=== PATIENT | female | born 1995 | race Two or more races ===

== ENCOUNTER 2018-08-07 21:15 | Emergency (ER) | payer SELFPAY ==
[~2018-08-07] VITALS: Ht 165.1 cm; Wt 88.9 kg
[2018-08-07 21:33] VITALS: BP 121/81
[2018-08-07] MEDS ORDERED: IBUPROFEN600 MG ORAL (23:19)
[2018-08-07 23:27] VITALS: BP 121/81
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
== END 2018-08-07 23:28 | disposition home or self-care (01) ==
LOC: EMR 22:00
DX: S20.211A Contusion of right front wall of thorax, initial encounter (principal); Y04.0XXA Assault by unarmed brawl or fight, initial encounter; Y92.89 Other specified places as the place of occurrence of the external cause; Z87.891 Personal history of nicotine dependence
CPT/HCPCS: 81025; 99283

== ENCOUNTER 2019-10-10 22:44 | Emergency (ER) | payer MEDICAID ==
[~2019-10-10] VITALS: Ht 162.6 cm; Wt 84.4 kg
[~2019-10-10 22:44] MED LIST: IBUPROFEN600 MG ORAL
[2019-10-10 22:52] VITALS: BP 131/87
[2019-10-10] MEDS ORDERED: Bactrim-DS 1 tab ORAL ONE (23:30)
[2019-10-10] MEDS ORDERED: MUPIROCIN22 GM TOPIC (23:39)
[2019-10-10] MEDS ORDERED: BACTRIM DS TAB1 EAC1 ORAL (23:39)
[2019-10-10] MEDS ORDERED: PSEUDOEPHEDRINE60 MG PO (23:39)
--- NOTE | 2019-10-10 23:40 | Emergency Room Report ---
History of Present Illness General Chief Complaint: Skin Rash/Abscess Source: Patient Present Illness HPI 23-year-old female with no past medical history. She presents with a rash to her lower extremities and buttock area. This been ongoing for last 4 to 5 days. She went to a clinic and was told that probably insect bite. She did shave her legs a week ago. No fever chills but she said there was some drainage when she tried a pop it. Now the one on her right leg is tender and itchy. There is some redness to it. She also complained of congestion and runny nose. This is been ongoing for 2 days. Hard time breathing because of congestion in her nose. Nonproductive cough. Allergies: Coded Allergies: No Known Allergies (Unverified , 08/07/18) Patient History Past Medical History: see triage record, old chart reviewed Past Surgical History: none Pertinent Family History: none Social History: Denies: smoking Last Menstrual Period: 08/06/19 Now: No Immunizations: other Reviewed Nursing Documentation: PMH: Agreed; PSxH: Agreed Nursing Documentation-PMH Past Medical History: No Stated History Review of Systems Eye: Denies: eye pain, blurred vision ENT: Reports: nose congestion; Denies: ear pain, throat swelling Respiratory: Denies: cough, shortness of breath Cardiovascular: Denies: chest pain, palpitations Gastrointestinal: Denies: abdominal pain, diarrhea, nausea, vomiting Musculoskeletal: Denies: back pain, joint pain Skin: Reports: rash Neurological: Reports: headache; Denies: numbness Endocrine: Denies: increased thirst, increased urine Hematologic/Lymphatic: Denies: easy bruising All Other Systems: negative except mentioned in HPI Physical Exam Vital Signs Date Time Temp Pulse Resp B/P (MAP) Pulse Ox O2 Delivery O2 Flow Rate FiO2 10/10/19 22:50 99.7 102 18 131/87 (102) 97 Room Air vitals normal Sp02 EP Interpretation: reviewed, normal General Appearance: well appearing, no apparent distress, alert Head: normocephalic, atraumatic Eyes: bilateral eye PERRL, bilateral eye EOMI ENT: hearing grossly normal, normal pharynx Neck: full range of motion, supple, no meningismus Respiratory: chest non-tender, lungs clear, normal breath sounds Cardiovascular #1: regular rate, rhythm, no murmur Gastrointestinal: normal bowel sounds, non tender, no mass, no organomegaly, no bruit, non-distended Musculoskeletal: back normal, gait/station normal, normal range of motion, other - scattered scabbed erythematous rash on buttock and lower extremities Psychiatric: mood/affect normal Medical Decision Making Diagnostic Impression: Primary Impression: URI (upper respiratory infection) Qualified Codes: J06.9 - Acute upper respiratory infection, unspecified Additional Impression: Cellulitis Qualified Codes: L03.119 - Cellulitis of unspecified part of limb ER Course This patient presents with cellulitis of her lower extremity. This is most likely MRSA. There is no abscess to be I&D. Will discharge home with antibiotics. Last Vital Signs Date Time Temp Pulse Resp B/P (MAP) Pulse Ox O2 Delivery O2 Flow Rate FiO2 10/10/19 22:50 99.7 102 18 131/87 (102) 97 Room Air Status: improved Disposition: HOME, SELF-CARE Condition: Stable Scripts Mupirocin* (MUPIROCIN*) 22 Gm Oint...g. 1 APPLIC TOPIC THREE TIMES A DAY, #22 GM Prov: Tod Barrios MD 10/10/19 Pseudoephedrine Hcl* (SUDAFED*) 60 Mg Tablet 60 MG PO Q6H, #20 TAB Prov: Tod Barrios MD 10/10/19 Trimethoprim/Sulfamethoxazole 160/800* (BACTRIM DS TABLET*) 1 Each Tablet 1 TAB ORAL Q12H, #14 TAB 0 Refills Prov: Tod Barrios MD 10/10/19 Additional Instructions: Follow-up with your doctor in 7 days. Keep wound clean. Return if symptoms worsen. Tod Barrios MD Oct 10, 2019 23:40
[2019-10-10 23:47] VITALS: BP 125/80
== END 2019-10-10 23:50 | disposition home or self-care (01) ==
LOC: EMR 23:50
DX: J06.9 Acute upper respiratory infection, unspecified (principal); L03.119 Cellulitis of unspecified part of limb
CPT/HCPCS: 99282

== ENCOUNTER 2020-01-18 18:44 | Emergency (ER) | payer MEDICAID ==
[~2020-01-18] VITALS: Ht 162.6 cm; Wt 81.6 kg
[~2020-01-18 18:44] MED LIST changes: +BACTRIM DS TAB1 EAC1 ORAL; +MUPIROCIN22 GM TOPIC; +PSEUDOEPHEDRINE60 MG PO
[2020-01-18 19:45] VITALS: BP 133/68
--- NOTE | 2020-01-18 19:45 | NUR ---
ED Nurse Note: pt presents to ED c/o epigastric px x 1.5 weeks. pt states that the pain sometimes radiates to her back, she rates the px a 9/10 that is intermittent but when it's there is "sharp." pt denies any N/V/D or difficulty breathing at this time.
--- NOTE | 2020-01-18 20:34 | Emergency Room Report ---
History of Present Illness General Chief Complaint: General Complaint Source: Patient (Mary Carmen Ortega) Present Illness HPI 24-year-old female with history of tobacco smoke, daily use of alcohol, and eating spicy food on daily basis here complaining of 2 weeks of epigastric pain radiating to her chest and shortness of breath. Reports that the pain is worse at night when she lays down however feels better when sits up and leans forward. Complains of acid reflux however denies nausea vomiting at this time. Denies fever and chills, diarrhea constipation, recent travel. Denies chest pain radiation, pleuritic chest pain, headache and dizziness. Has not taken medication for symptom relief. Patient reports that she also smokes hookah and occasional tobacco smoke. Denies other drug use. Reports that she drinks wine every night. Denies at this time however would like to be tested. (Mary Carmen Ortega) Allergies: Coded Allergies: No Known Allergies (Unverified , 08/07/18) Patient History Past Medical History: see triage record Past Surgical History: unable to obtain Pertinent Family History: none Social History: Reports: smoking, alcohol use Last Menstrual Period: 12/31/19 Now: No Immunizations: UTD Reviewed Nursing Documentation: PMH: Agreed; PSxH: Agreed (Mary Carmen Ortega) Nursing Documentation-PMH Past Medical History: No Stated History (Mary Carmen Ortega) Review of Systems All Other Systems: negative except mentioned in HPI (Mary Carmen Ortega) Physical Exam Vital Signs Date Time Temp Pulse Resp B/P (MAP) Pulse Ox O2 Delivery O2 Flow Rate FiO2 01/18/20 18:52 98.4 94 18 133/68 (89) 98 Room Air Sp02 EP Interpretation: reviewed, normal General Appearance: no apparent distress, alert, GCS 15, non-toxic Head: normocephalic, atraumatic Eyes: bilateral eye normal inspection, bilateral eye PERRL ENT: hearing grossly normal, normal pharynx, no angioedema, normal voice Neck: full range of motion, supple, supple/symm/no masses Respiratory: chest non-tender, lungs clear, normal breath sounds, no rhonchi, no respiratory distress, no retraction, no wheezing, speaking full sentences Cardiovascular #1: regular rate, rhythm, no edema, no murmur Cardiovascular #2: 2+ carotid (R), 2+ carotid (L), 2+ radial (R), 2+ radial (L) Gastrointestinal: normal bowel sounds, non tender, soft, no mass, no organomegaly, no peritonitis, no bruit, non-distended, no guarding, no hernia, no pulsatile mass, no rebound Genitourinary: normal inspection, no CVA tenderness Musculoskeletal: back normal, no calf tenderness, pelvis stable Neurologic: alert, oriented, cerebellar normal Psychiatric: judgement/insight normal, memory normal, mood/affect normal, no suicidal/homicidal ideation Skin: no rash, palpation normal, normal color Lymphatic: normal inspection (Mary Carmen Ortega) Medical Decision Making PA Attestation All diagnoses and treatment plans were reviewed and discussed with my supervising physician Dr. Mayen (Mary Carmen Ortega) Diagnostic Impression: Primary Impression: Gastritis Additional Impression: Nonspecific chest pain ER Course 24-year-old female with history of tobacco smoke, daily use of alcohol, and eating spicy food on daily basis here complaining of 2 weeks of epigastric pain radiating to her chest and shortness of breath. Reports that the pain is worse at night when she lays down however feels better when sits up and leans forward. Complains of acid reflux however denies nausea vomiting at this time. Denies fever and chills, diarrhea constipation, recent travel. Denies chest pain radiation, pleuritic chest pain, headache and dizziness. Has not taken medication for symptom relief. Patient reports that she also smokes hookah and occasional tobacco smoke. Denies other drug use. Reports that she drinks wine every night. Denies at this time however would like to be tested. Ddx considered but are not limited to: ND, Angina, COPD, GERD, Vital signs: are WNL, pt. is afebrile H&PE are most consistent with gastritis with possibility of gastric ulcer as patient reports that the pain is worsened after eating, nonspecific chest pain ORDERS: EKG, Chest XR, urine test, tox screen, omeprazole, Zofran, dicyclomine, Tylenol ED INTERVENTIONS: None required at this time. DISCHARGE: At this time pt. is stable for d/c to home. Will provide printed patient care instructions, and any necessary prescriptions. Care plan and follow up instructions have been discussed with the patient prior to discharge. Patient to follow-up with primary care provider, also to be referred to [facility] planning manager for possible endoscopy as patient may have gastric ulcer due to feeling pain after eating, referral to director export. Patient understand that she needs to cut back on spicy food, alcohol, tobacco smoke. If worsening symptoms return to the emergency room at this time no further blood work or imaging needed patient, I do not suspect any cardiac issues causing this this is been ongoing more so in the past 2 weeks however patient had the symptoms for the past several months. (Mary Carmen Ortega) EKG Diagnostic Results Rate: normal Rhythm: NSR ST Segments: no acute changes Other Impression No acute ST changes (Mary Carmen Ortega) Chest X-Ray Diagnostic Results Chest X-Ray Diagnostic Results : Chest X-Ray Ordered: Yes # of Views/Limited/Complete: 1 View Indication: Chest Pain EP Interpretation: Yes PA Xray: Interpretation reviewed, by supervising MD, and agrees with findings. Interpretation: no consolidation, no effusion, no pneumothorax Impression: No acute disease Electronically Signed by: Mary Carmen Franco PA-C (Mary Carmen Ortega) Chest X-Ray Diagnostic Results : Electronically Signed by: Josette Freeman documentation of Xray reviewed by me and is accurate, Leopoldo Mayen MD (Leopoldo Mayen MD) Last Vital Signs Date Time Temp Pulse Resp B/P (MAP) Pulse Ox O2 Delivery O2 Flow Rate FiO2 01/18/20 18:52 98.4 94 18 133/68 (89) 98 Room Air (Mary Carmen Ortega) Disposition: HOME, SELF-CARE Condition: Stable Scripts Dicyclomine Hcl* (DICYCLOMINE HCL*) 10 Mg Capsule 10 MG ORAL QID, #20 CAP Prov: Mary Carmen Ortega 01/18/20 Ondansetron (Zofran) 4 Mg Tablet 4 MG ORAL Q6H PRN for Nausea & Vomiting, #14 TAB Prov: Mary Carmen Ortega 01/18/20 Omeprazole (OMEPRAZOLE) 20 Mg Tablet.dr 20 MG ORAL DAILY, #30 TAB Prov: Mary Carmen Ortega 01/18/20 Patient Instructions: Gastritis, Adult, [id number], Nonspecific Chest Pain, [id number] Additional Instructions: Take medication as directed, follow-up with your primary care provider, increase oral hydration, avoid eating spicy acidic food, avoid smoking tobacco and alcohol intake. Also follow-up with your primary doctor for referral to [facility] planning manager and possible endoscopy. Also have your primary doctor to further evaluate if chest pain continues. Possible director export referral. If worsening symptoms return to emergency Mary Carmen Ortega Jan 18, 2020 20:34 Leopoldo Mayen MD Jan 20, 2020 05:32
[2020-01-18] MEDS ORDERED: OMEPRAZOLE20 M3 ORAL (20:35)
[2020-01-18] MEDS ORDERED: ZOFRAN4 M1 ORAL (20:35)
[2020-01-18] MEDS ORDERED: DICYCLOMINE HCL10 MG ORAL (20:35)
--- NOTE | 2020-01-18 20:35 | Diagnostic Imaging Report ---
History: SOB Exam: XR CXR 1 VIEW Comparison: 08/07/2018 FINDINGS: The lungs are clear. The cardiac and mediastinal contours are within limits. Mild rightward curvature, scoliosis again noted. IMPRESSION: No evidence of acute disease.
[2020-01-18 20:40] VITALS: BP 133/68
--- NOTE | 2020-01-18 20:40 | NUR ---
ED Nurse Note: Pt cleared by health care Provider for discharge. DC instructions/prescription was given and explained to pt and verbalized understanding of teachings. All medical devices such as ID band removed. Pt is AAO x4, ambulatory and left with all personal belongings.
== END 2020-01-18 20:45 | disposition home or self-care (01) ==
LOC: EMR 20:42
DX: K29.70 Gastritis, unspecified, without bleeding (principal); R07.9 Chest pain, unspecified; F17.200 Nicotine dependence, unspecified, uncomplicated
CPT/HCPCS: 71045; 80307; 81025; 93005; Z7502; 99284

== ENCOUNTER 2020-10-08 21:01 | Emergency (ER) | payer MEDICAID ==
[~2020-10-08] VITALS: Ht 162.6 cm; Wt 77.6 kg
[~2020-10-08 21:01] MED LIST changes: +DICYCLOMINE HCL10 MG ORAL; +OMEPRAZOLE20 M3 ORAL; +ZOFRAN4 M1 ORAL
--- NOTE | 2020-10-08 21:10 | NUR ---
ED Nurse Note: Patient walked in from home c/o vaginal bleeding accompanied by headache the started today. Patient aao x 4 and ambulatory with steady gait. Patient describes bright red bleeding "like a nosebleed, a little more than spotting". Patient reports she is 5 weeks and 6 days . Patient reports 3 pregnancies including current , 1 voluntary . 3, Para 1. Patient changed into gown, pt in stable condition.
[2020-10-08 21:29] LABS: APPEARANCE,URINE CLEAR; BILIRUBIN, URINE NEGATIVE (NEGATIVE); COLOR,URINE PALE YELLOW; GLUCOSE, URINE (UA) NEGATIVE (NEGATIVE); KETONES,URINE NEGATIVE (NEGATIVE); LEUKOCYTE ESTERASE ,URINE 2+ (NEGATIVE); NITRITE,URINE NEGATIVE (NEGATIVE); PH,URINE 7 (4.5-8.0); PROTEIN,URINE NEGATIVE (NEGATIVE); UROBILINOGEN,URINE NORMAL MG/DL (0.0-1.0)
[2020-10-08 21:56] LABS: BASOPHILS % (AUTO) 0.8 % (0.0-2.0); EOSINOPHILS % (AUTO) 0.6 % (0.0-3.0); HEMATOCRIT 42.9 % (37.0-47.0); HEMOGLOBIN 14.8 G/DL (12.0-16.0); LYMPHOCYTES % (AUTO) 27.7 % (20.0-45.0); MEAN CORPUSCULAR VOLUME 92 FL (80-99); MONOCYTES % (AUTO) 5.5 % (1.0-10.0); NEUTROPHILS % (AUTO) 65.5 % (45.0-75.0); PLATELET COUNT 236 K/UL (150-450); RED BLOOD COUNT 4.68 M/UL (4.20-5.40); RED CELL DISTRIBUTION WIDTH 10.4 % (11.6-14.8); WHITE BLOOD COUNT 8.3 K/UL (4.8-10.8)
[2020-10-08 22:03] LABS: ANION GAP 8 mmol/L (5-15); BLOOD UREA NITROGEN 10 mg/dL (7-18); CALCIUM 8.7 MG/DL (8.5-10.1); CARBON DIOXIDE 27 MMOL/L (21-32); CHLORIDE 102 MMOL/L (98-107); CREATININE 0.8 MG/DL (0.55-1.30); POTASSIUM 3.7 MMOL/L (3.5-5.1); SODIUM 137 MMOL/L (136-145)
[2020-10-08 22:04] LABS: INR 0.9 (0.9-1.1)
[2020-10-08 22:08] LABS: ALANINE AMINOTRANSFERASE 20 U/L (12-78); ALBUMIN 3.6 G/DL (3.4-5.0); ALKALINE PHOSPHATASE 61 U/L (46-116); ASPARTATE AMINO TRANSFERASE 13 U/L (15-37); BILIRUBIN,TOTAL 0.2 MG/DL (0.2-1.0)
--- NOTE | 2020-10-08 22:18 | NUR ---
ED Nurse Note: Ultrasound at bedside
--- NOTE | 2020-10-08 22:22 | Emergency Room Report ---
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 Patient History Past Medical History: see triage record : 3 Para: 1 Reviewed Nursing Documentation: PMH: Agreed; PSxH: Agreed Nursing Documentation-PMH Past Medical History: No Stated History Review of Systems All Other Systems: negative except mentioned in HPI Physical Exam Vital Signs Date Time Temp Pulse Resp B/P (MAP) Pulse Ox O2 Delivery O2 Flow Rate FiO2 10/08/20 21:04 92 19 133/87 (102) 100 Room Air Sp02 EP Interpretation: reviewed, normal General Appearance: well appearing, no apparent distress, alert Head: normocephalic, atraumatic Eyes: bilateral eye PERRL, bilateral eye EOMI ENT: uvula midline, moist mucus membranes Neck: supple, thyroid normal, supple/symm/no masses Respiratory: lungs clear, no respiratory distress, no retraction, no accessory muscle use Cardiovascular #1: normal peripheral pulses, regular rate, rhythm, no edema, no gallop, no murmur Gastrointestinal: non tender, soft, no guarding, no rebound Musculoskeletal: normal inspection Neurologic: alert, oriented x3 Psychiatric: mood/affect normal Skin: no rash, warm/dry Medical Decision Making Diagnostic Impression: Primary Impression: Threatened Laboratory Tests Test 10/08/20 21:10 10/08/20 21:18 White Blood Count 8.3 K/UL (4.8-10.8) Red Blood Count 4.68 M/UL (4.20-5.40) Hemoglobin 14.8 G/DL (12.0-16.0) Hematocrit 42.9 % (37.0-47.0) Mean Corpuscular Volume 92 FL (80-99) Mean Corpuscular Hemoglobin 31.7 PG (27.0-31.0) H Mean Corpuscular Hemoglobin Concent 34.6 G/DL (32.0-36.0) Red Cell Distribution Width 10.4 % (11.6-14.8) L Platelet Count 236 K/UL (150-450) Mean Platelet Volume 9.2 FL (6.5-10.1) Neutrophils (%) (Auto) 65.5 % (45.0-75.0) Lymphocytes (%) (Auto) 27.7 % (20.0-45.0) Monocytes (%) (Auto) 5.5 % (1.0-10.0) Eosinophils (%) (Auto) 0.6 % (0.0-3.0) Basophils (%) (Auto) 0.8 % (0.0-2.0) Prothrombin Time 10.1 SEC (9.30-11.50) Prothrombin Time INR 0.9 (0.9-1.1) Activated Partial Thromboplast Time 25 SEC (23-33) Sodium Level 137 MMOL/L (136-145) Potassium Level 3.7 MMOL/L (3.5-5.1) Chloride Level 102 MMOL/L (98-107) Carbon Dioxide Level 27 MMOL/L (21-32) Anion Gap 8 mmol/L (5-15) Blood Urea Nitrogen 10 mg/dL (7-18) Creatinine 0.8 MG/DL (0.55-1.30) Estimated Glomerular Filtration Rate > 60 mL/min (>60) Glucose Level 91 MG/DL (74-106) Calcium Level 8.7 MG/DL (8.5-10.1) Total Bilirubin 0.2 MG/DL (0.2-1.0) Aspartate Amino Transferase (AST) 13 U/L (15-37) L Alanine Aminotransferase (ALT) 20 U/L (12-78) Alkaline Phosphatase 61 U/L (46-116) Total Protein 7.2 G/DL (6.4-8.2) Albumin 3.6 G/DL (3.4-5.0) Globulin 3.6 g/dL Albumin/Globulin Ratio 1.0 (1.0-2.7) Lipase 143 U/L (73-393) Human Chorionic Gonadotropin, Quant Pending Urine Color Pale yellow Urine Appearance Clear Urine pH 7 (4.5-8.0) Urine Specific [place] 1.010 (1.005-1.035) Urine Protein Negative (NEGATIVE) Urine Glucose (UA) Negative (NEGATIVE) Urine Ketones Negative (NEGATIVE) Urine Blood Negative (NEGATIVE) Urine Nitrite Negative (NEGATIVE) Urine Bilirubin Negative (NEGATIVE) Urine Urobilinogen Normal MG/DL (0.0-1.0) Urine Leukocyte Esterase 2+ (NEGATIVE) H Urine RBC 0-2 /HPF (0 - 2) Urine WBC 5-10 /HPF (0 - 2) H Urine Squamous Epithelial Cells Few /LPF (NONE/OCC) Urine Bacteria Occasional /HPF (NONE) Urine Trichomonas Occasional /HPF (NONE) Last Vital Signs Date Time Temp Pulse Resp B/P (MAP) Pulse Ox O2 Delivery O2 Flow Rate FiO2 10/08/20 21:04 92 19 133/87 (102) 100 Room Air Disposition: HOME, SELF-CARE Condition: Stable Referrals: NOT CHOSEN IPA/,REFERRING (PCP) [facility] Women's Health Patient Instructions: First Trimester of , [id number], Threatened Miscarriage, [id number] Additional Instructions: The patient was provided with discharge instructions, notified to follow-up with a primary care doctor and or specialist in the next 24-48 hours, and to return to the ED if they have worsening of their symptoms. Please note that this report is being documented using Xelerated technology. This can lead to erroneous entry secondary to incorrect interpretation by the dictating instrument. Keith Solares MD Oct 08, 2020 22:22
[2020-10-08 22:56] VITALS: BP 128/79
--- NOTE | 2020-10-08 22:56 | NUR ---
ER DISCHARGE NOTE: Patient is cleared to be discharged per ERMD, pt is aox4, on room air, with stable vital signs. pt was given dc instructions, pt was able to verbalize understanding, pt id band and iv site removed intact without complications. pt is able to ambulate with steady gait. pt took all belongings. pt stable upon discharge.
--- NOTE | 2020-10-08 23:55 | Diagnostic Imaging Report ---
EXAM: US First Trimester , Transabdominal and Transvaginal CLINICAL HISTORY: ABD PAIN TECHNIQUE: Real-time transabdominal and transvaginal obstetrical ultrasound of the maternal pelvis and a first trimester with image documentation. Transvaginal imaging was used for better evaluation of the fetus and adnexa. COMPARISON: No relevant prior studies available. FINDINGS: Gestation: Single live IUP. heart rate of 115 bpm. Mean sac diameter of 1.74 cm. [place]-rump length of 0.55 cm. Average ultrasound age of 6 weeks and 3 days which is concordant with dates. Placenta/amniotic fluid: Small subchorionic hemorrhage measuring 0.5 x 0.4 x 0.3 cm. Uterus/cervix: A left-sided intramural myoma is seen measuring 3.1 x 2. 6 x 2.7 cm. Ovaries: Left ovarian 2.4 cm cyst which may represent a corpus luteal cyst. Free fluid: No free fluid. IMPRESSION: 1. Single live IUP of 6 weeks and 3 days. Size concordant with dates (LMP=08/28/20). 2. Small subchorionic hemorrhage measuring 0.5 x 0.4 x 0.3 cm. 3. 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 4. Left ovarian 2.4 cm cyst which may represent a corpus luteal cyst.
== END 2020-10-08 22:56 | disposition home or self-care (01) ==
LOC: EMR 21:33
DX: O20.0 Threatened abortion (principal); Z3A.01 Less than 8 weeks gestation of pregnancy
CPT/HCPCS: 36415; 76801; 76817; 80053; 81003; 83690; 84702; 85025; 85610; 85730; 86850; 86900; 86901; Z7502; 99284

== ENCOUNTER 2020-10-11 22:13 | Emergency (ER) | payer MEDICAID ==
[~2020-10-11] VITALS: Ht 162.6 cm; Wt 77.1 kg
--- NOTE | 2020-10-11 22:21 | NUR ---
ED Nurse Note: pt walked into ED from home c/o persistent vaginal bleeding with small blood clots with abdominal and back pain. Pt states she was seen here in ED this week for same complaint. Pt is 6 weeks . Pt is AAOx4, breathing even and unlabored, vital signs stable as documented.
--- NOTE | 2020-10-11 22:33 | Emergency Room Report ---
History of Present Illness General Chief Complaint: Complications Source: Patient Present Illness HPI 24-year-old 6 weeks 6 days by ultrasound here with vaginal bleeding. Patient was here 3 days ago and was having vaginal bleeding at that time. She had an ultrasound performed at that time which showed 1. Single live IUP of 6 weeks and 3 days. Size concordant with dates (LMP=08/28/20). 2. Small subchorionic hemorrhage measuring 0.5 x 0.4 x 0.3 cm. 3. 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 4. Left ovarian 2.4 cm cyst which may represent a corpus luteal cyst. She says that the bleeding has worsened. Has not had a chance to follow-up with [facility]. Says she is also having worsening pelvic cramping. Has not taken any medications for the symptoms. Denies fevers, chills, chest pain, palpitations, shortness of breath, back pain, other abdominal pain, nausea, vomiting, diarrhea, dysuria. Denies smoking, drug use. Allergies: Coded Allergies: No Known Allergies (Unverified , 08/07/18) COVID-19 Screening Contact w/high risk pt: No Experienced COVID-19 symptoms?: No COVID-19 Testing performed MEMBERSHIP ASSISTANT: No Patient History Now: Yes : 3 Nursing Documentation-[facility] Past Medical History: No Stated History Review of Systems All Other Systems: negative except mentioned in HPI Physical Exam Vital Signs Date Time Temp Pulse Resp B/P (MAP) Pulse Ox O2 Delivery O2 Flow Rate FiO2 10/11/20 22:21 98.4 86 16 117/80 (92) 98 Room Air Sp02 EP Interpretation: reviewed, normal General Appearance: no apparent distress, alert, non-toxic Head: normocephalic, atraumatic Eyes: bilateral eye normal inspection, bilateral eye PERRL ENT: hearing grossly normal, normal pharynx, no angioedema, normal voice Neck: full range of motion, supple/symm/no masses Respiratory: chest non-tender, lungs clear, normal breath sounds, speaking full sentences Cardiovascular #1: regular rate, rhythm, no edema Cardiovascular #2: 2+ carotid (R), 2+ carotid (L), 2+ radial (R), 2+ radial (L), 2+ dorsalis pedis (R), 2+ dorsalis pedis (L) Gastrointestinal: normal bowel sounds, non tender, soft, non-distended, no guarding, no rebound Rectal: deferred Genitourinary: normal inspection, no CVA tenderness Musculoskeletal: back normal, normal range of motion, gait/station normal, non- tender Neurologic: alert, motor strength/tone normal, oriented x3, sensory intact, responsive, speech normal Psychiatric: judgement/insight normal, memory normal, mood/affect normal, no suicidal/homicidal ideation Lymphatic: no adenopathy Medical Decision Making Diagnostic Impression: Primary Impression: Asymptomatic bacteriuria Additional Impression: Threatened ER Course Laboratory Tests Test 10/11/20 22:15 White Blood Count 7.7 K/UL (4.8-10.8) Red Blood Count 4.77 M/UL (4.20-5.40) Hemoglobin 14.9 G/DL (12.0-16.0) Hematocrit 43.7 % (37.0-47.0) Mean Corpuscular Volume 92 FL (80-99) Mean Corpuscular Hemoglobin 31.2 PG (27.0-31.0) H Mean Corpuscular Hemoglobin Concent 34.1 G/DL (32.0-36.0) Red Cell Distribution Width 10.3 % (11.6-14.8) L Platelet Count 240 K/UL (150-450) Mean Platelet Volume 8.8 FL (6.5-10.1) Neutrophils (%) (Auto) 65.2 % (45.0-75.0) Lymphocytes (%) (Auto) 26.8 % (20.0-45.0) Monocytes (%) (Auto) 6.4 % (1.0-10.0) Eosinophils (%) (Auto) 0.8 % (0.0-3.0) Basophils (%) (Auto) 0.8 % (0.0-2.0) Urine Color Pale yellow Urine Appearance Clear Urine pH 6 (4.5-8.0) Urine Specific [place] 1.010 (1.005-1.035) Urine Protein Negative (NEGATIVE) Urine Glucose (UA) Negative (NEGATIVE) Urine Ketones 3+ (NEGATIVE) H Urine Blood Negative (NEGATIVE) Urine Nitrite Negative (NEGATIVE) Urine Bilirubin Negative (NEGATIVE) Urine Urobilinogen Normal MG/DL (0.0-1.0) Urine Leukocyte Esterase 1+ (NEGATIVE) H Urine RBC 0-2 /HPF (0 - 2) Urine WBC 2-4 /HPF (0 - 2) Urine Squamous Epithelial Cells Few /LPF (NONE/OCC) Urine Bacteria Few /HPF (NONE) Sodium Level 136 MMOL/L (136-145) Potassium Level 3.4 MMOL/L (3.5-5.1) L Chloride Level 102 MMOL/L (98-107) Carbon Dioxide Level 28 MMOL/L (21-32) Anion Gap 6 mmol/L (5-15) Blood Urea Nitrogen 10 mg/dL (7-18) Creatinine 0.7 MG/DL (0.55-1.30) Estimated Glomerular Filtration Rate > 60 mL/min (>60) Glucose Level 85 MG/DL (74-106) Calcium Level 8.9 MG/DL (8.5-10.1) Total Bilirubin 0.3 MG/DL (0.2-1.0) Aspartate Amino Transferase (AST) 17 U/L (15-37) Alanine Aminotransferase (ALT) 27 U/L (12-78) Alkaline Phosphatase 48 U/L (46-116) Total Protein 7.6 G/DL (6.4-8.2) Albumin 3.9 G/DL (3.4-5.0) Globulin 3.7 g/dL Albumin/Globulin Ratio 1.1 (1.0-2.7) Lipase 134 U/L (73-393) Human Chorionic Gonadotropin, Quant 41510 mIU/mL (1-6) H Ultrasound report: Transvaginal OB first trimester ultrasound: [place]-rump length of 7 mm corresponding to age 6 weeks 4 days. Heart rate 143 bpm. Unchanged small subchorionic hemorrhage 24-year-old female -0-1-1 here with vaginal bleeding. Patient was hemodynamically stable and neurovascular intact. She had a closed cervical os and only small amount of blood within the vaginal canal. CBC, CMP unremarkable. Patient's blood type B+. No indication for RhoGam at this time. Transvaginal ultrasound revealed an IUP 6 weeks 4 days gestational age, unchanged small subchorionic hemorrhage from the patient's previous ultrasound that she had 2 days ago. She had normal vital signs and was in no distress in the emergency department. All questions were answered. Patient was given information to follow-up with [facility]. Her hCG levels have nearly doubled over the past 48 hours since she was last here in the emergency department. She was told to come back to the emergency department she has any worsening pain or bleeding and passage of large clots. Otherwise she is stable to follow-up with [facility]. She was found to have few bacteria in her urine. That this appears to be dirty sample the patient will be treated for asymptomatic bacteriuria with 7 days of Keflex. Discharged in stable condition. Last Vital Signs Date Time Temp Pulse Resp B/P (MAP) Pulse Ox O2 Delivery O2 Flow Rate FiO2 10/11/20 22:21 98.4 86 16 117/80 (92) 98 Room Air Scripts Cephalexin* (KEFLEX*) 500 Mg Capsule 500 MG ORAL EVERY 12 HOURS, #14 CAP 0 Refills Prov: Samson Padilla M.D. 10/11/20 Referrals: NOT CHOSEN [facility]/,REFERRING (PCP) Samson Padilla M.D. Oct 11, 2020 22:33
--- NOTE | 2020-10-11 22:42 | NUR ---
ED Nurse Note: urine and blood collected and sent to lab
[2020-10-11] MEDS ORDERED: Acetaminophen 500mg (ES) tab ORAL ONE (22:45)
[2020-10-11 23:09] LABS: BASOPHILS % (AUTO) 0.8 % (0.0-2.0); EOSINOPHILS % (AUTO) 0.8 % (0.0-3.0); HEMATOCRIT 43.7 % (37.0-47.0); HEMOGLOBIN 14.9 G/DL (12.0-16.0); LYMPHOCYTES % (AUTO) 26.8 % (20.0-45.0); MEAN CORPUSCULAR VOLUME 92 FL (80-99); MONOCYTES % (AUTO) 6.4 % (1.0-10.0); NEUTROPHILS % (AUTO) 65.2 % (45.0-75.0); PLATELET COUNT 240 K/UL (150-450); RED BLOOD COUNT 4.77 M/UL (4.20-5.40); RED CELL DISTRIBUTION WIDTH 10.3 % (11.6-14.8); WHITE BLOOD COUNT 7.7 K/UL (4.8-10.8)
--- NOTE | 2020-10-11 23:11 | NUR ---
ED Nurse Note: US tech at bedside
[2020-10-11 23:21] LABS: APPEARANCE,URINE CLEAR; BILIRUBIN, URINE NEGATIVE (NEGATIVE); COLOR,URINE PALE YELLOW; GLUCOSE, URINE (UA) NEGATIVE (NEGATIVE); KETONES,URINE 3+ (NEGATIVE); LEUKOCYTE ESTERASE ,URINE 1+ (NEGATIVE); NITRITE,URINE NEGATIVE (NEGATIVE); PH,URINE 6 (4.5-8.0); PROTEIN,URINE NEGATIVE (NEGATIVE); UROBILINOGEN,URINE NORMAL MG/DL (0.0-1.0)
[2020-10-11 23:26] LABS: ANION GAP 6 mmol/L (5-15); BLOOD UREA NITROGEN 10 mg/dL (7-18); CALCIUM 8.9 MG/DL (8.5-10.1); CARBON DIOXIDE 28 MMOL/L (21-32); CHLORIDE 102 MMOL/L (98-107); CREATININE 0.7 MG/DL (0.55-1.30); POTASSIUM 3.4 MMOL/L (3.5-5.1); SODIUM 136 MMOL/L (136-145)
--- NOTE | 2020-10-11 23:36 | NUR ---
ED Nurse Note: US complete
[2020-10-11 23:39] LABS: ALANINE AMINOTRANSFERASE 27 U/L (12-78); ALBUMIN 3.9 G/DL (3.4-5.0); ALBUMIN/GLOBULIN RATIO 1.1 (1.0-2.7); ALKALINE PHOSPHATASE 48 U/L (46-116); ASPARTATE AMINO TRANSFERASE 17 U/L (15-37); BILIRUBIN,TOTAL 0.3 MG/DL (0.2-1.0)
[2020-10-11] MEDS ORDERED: CEPHALEXIN500 MG ORAL (23:52)
--- NOTE | 2020-10-12 00:06 | Diagnostic Imaging Report ---
EXAM: US , Transvaginal CLINICAL HISTORY: ABD PAIN TECHNIQUE: Real-time transvaginal obstetrical ultrasound of the maternal pelvis and a first trimester with image documentation. Transvaginal imaging was used for better evaluation of the fetus and adnexa. COMPARISON: 10/08/2020 FINDINGS: Gestation: Single live intrauterine is identified. [place]- rump length is 7 mm corresponding to an age of 6 weeks and 4 days. Heart rate is 143 bpm. Unchanged small subchorionic hemorrhage. Placenta/amniotic fluid: Cannot be adequately evaluated due to the early gestational age. Uterus/cervix: No myometrial mass. Ovaries: Both ovaries contain multiple follicles. No mass. Free fluid: No free fluid. IMPRESSION: [place]-rump length is 7 mm corresponding to an age of 6 weeks and 4 days. Heart rate is 143 bpm. Unchanged small subchorionic hemorrhage. [place] is 06/02/2021.
[2020-10-12 00:14] VITALS: BP 114/72
--- NOTE | 2020-10-12 00:14 | NUR ---
ER DISCHARGE NOTE: Patient is cleared to be discharged per ERMD, pt is aox4, on room air, with stable vital signs. pt was given dc and paper prescriptions with instructions to make appointment with OBGYN, pt was able to verbalize understanding, pt id band and iv site removed without complications. pt is able to ambulate with steady gait. pt took all belongings.
== END 2020-10-12 00:14 | disposition home or self-care (01) ==
LOC: EMR 22:30
DX: O26.891 Other specified pregnancy related conditions, first trimester (principal); R82.71 Bacteriuria; O20.0 Threatened abortion; Z3A.01 Less than 8 weeks gestation of pregnancy
CPT/HCPCS: 36415; 76801; 76817; 80053; 81003; 83690; 84702; 85025; 86850; 86900; 86901; Z7502; 99284